=== PATIENT | male | born 1960 | race Caucasian/White ===

== ENCOUNTER 2018-02-28 18:21 | Emergency (ER) | payer BC ==
[2018-02-28] MEDS ORDERED: NS 0.9% 1000 ML* 1,000 ML IV ONE (19:22)
[2018-02-28 19:37] LABS: ABS Basophils 0.1 10^3/ul (0-0.2); ABS Eosinophils 0.1 10^3/ul (0-0.6); ABS Lymphocytes 2.1 10^3/ul (1.0-4.8); ABS Monocytes 0.7 10^3/ul (0-0.8); ABS Neutrophils 7.9 10^3/ul (1.5-7.7); ABS Nucleated RBC 0 10^3/ul; Eosinophil % 1.1 % (0-6); Hematocrit 44 % (42-52); Hemoglobin 15.1 g/dl (14.0-18.0); Lymphocyte % 19.4 % (25-47); Mean Corpuscular HGB Conc 35 g/dl (31-36); Mean Corpuscular Hemoglobin 32 pg (27-31); Mean Corpuscular Volume 92 fL (80-94); Mean Platelet Volume 8.7 um3 (7.4-10.4); Nucleated Red Blood Cells % 0.1; Platelet Count 173 10^3/ul (150-450); Red Blood Count 4.73 10^6/ul (4.00-5.40); Red Cell Distribution Width 13 % (10.5-15)
[2018-02-28 19:52] LABS: EGFR Non-African American 74.4 (>60)
[2018-02-28 19:57] LABS: INR 1.01 (0.77-1.02)
[2018-02-28 20:32] LABS: Urine Appearance Clear; Urine Blood Negative (Negative); Urine Color Straw; Urine Ketones Negative (Negative); Urine Protein Negative (Negative); Urine Specific Gravity 1.006 (1.010-1.030); Urine Urobilinogen Negative (Negative)
[2018-02-28] MEDS ORDERED: Iohexol 300* (CONTRAST) 10 ML SDV IV ONE (20:55)
--- NOTE | 2018-02-28 21:52 | RAD ---
CLINICAL HISTORY: Left lower quadrant pain COMPARISON: Similar CT August 31, 2011 TECHNIQUE: Contrast enhanced CT examination of the abdomen and pelvis from the lung bases through the initial tuberosities. The patient received 150 mL Omnipaque 300 intravenously prior to imaging.The patient received oral contrast as well prior to imaging. FINDINGS: VISUALIZED LUNG BASES: The visualized lung bases are grossly clear. There is no pleural effusion. ABDOMEN AND PELVIS: The liver, spleen, pancreas and adrenal glands are grossly normal in appearance. The gallbladder is normal. The kidneys are normal in appearance without focal mass, calcification or signs of hydronephrosis. There are contrast has progressed as far as the rectum. The small and large bowel are not distended. The patient's normal appendix is identified in the right lower quadrant. There is mild thickening of the distal descending colon extending into the sigmoid colon. There is pericolonic infiltration. There is no drainable fluid collection. There are scattered diverticula in the vicinity. There is no gross retroperitoneal or mesenteric lymphadenopathy. The pelvic viscera is normal in appearance. The abdominal aorta and iliac arteries are normal in course and diameter. Degenerative changes include multilevel loss of intervertebral disc height involving the lower thoracic and lumbar spine.There are no sinister bone lesions. IMPRESSION: CT findings are most consistent with diverticulitis involving the distal descending colon and proximal most sigmoid colon.
[2018-02-28] MEDS ORDERED: metroNIDAZOLE TAB* 250 MG PO ONE ×2 (22:03→22:04)
[2018-02-28] MEDS ORDERED: Ciprofloxacin TAB* 500 MG PO ONE ×2 (22:03→22:04)
--- NOTE | 2018-02-28 22:08 | ED ---
Pat Ng Edward, scribed for Ancelmo Fox MD on 02/28/18 at 1923 . Abdominal Pain/Male - HPI Summary HPI Summary: 57 y/o male presents to the ED c/o ABD pain at the L lower ABD starting at around 01:00 this morning. Pain is severe when ABD is pushed on, mild at rest. PMHx 1x diverticulitis (years ago). Pt believes his sx today resemble that of his previous diverticulitis. Denies ABD sx. PMHx IBS - intermittent diarrhea chronically. Denies nausea. [facility]; sent to ED. - History of Current Complaint Chief Complaint: EDAbdPain Stated Complaint: ABD PAIN/[facility] Time Seen by Provider: 02/28/18 19:17 Hx Obtained From: Patient Onset/Duration: Lasting Hours, Still Present Severity Currently: Severe Pain Intensity: 7 Pain Scale Used: 0-10 Numeric Location: Discrete At: RLQ, Suprapubic Aggravating Factor(s): Nothing Alleviating Factor(s): Nothing Associated Signs And Symptoms: Positive: Diarrhea - IBSD. Negative: Urinary Symptoms - Allergies/Home Medications Allergies/Adverse Reactions: Allergies Allergy/AdvReac Type Severity Reaction Status Date / Time No Known Allergies Allergy Verified 02/28/18 18:35 Home Medications: Home Medications Diphenoxylat/Atrop 2.5-0.025M* [Lomotil TAB*] 2 tab PO TID MDD 6 tabs 02/28/18 [ History Confirmed 02/28/18] PMH/Surg Hx/FS Hx/Imm Hx Previously Healthy: No Endocrine/Hematology History: Denies: Hx Anticoagulant Therapy, Hx Diabetes, Hx Thyroid Disease Cardiovascular History: Denies: Hx Hypertension, Hx Pacemaker/ICD Respiratory History: Denies: Hx Asthma, Hx Chronic Obstructive Pulmonary Disease (COPD) History: Denies: Hx Renal Disease Neurological History: Denies: Hx Dementia, Hx Seizures Psychiatric History: Denies: Hx Substance Abuse Infectious Disease History: No Infectious Disease History: Denies: Hx Hepatitis, Hx Human Immunodeficiency Virus (HIV), Traveled Outside the [place] in Last 30 Days - Family History Known Family History: Positive: Unknown - Social History Alcohol Use: Occasionally Substance Use Type: Reports: None Smoking Status (MU): Never Smoked Tobacco Review of Systems Constitutional: Negative Eyes: Negative ENT: Negative Cardiovascular: Negative Respiratory: Negative Positive: Abdominal Pain, Diarrhea - IBS Genitourinary: Negative Musculoskeletal: Negative Skin: Negative Neurological: Negative Psychological: Normal All Other Systems Reviewed And Are Negative: Yes Physical Exam Triage Information Reviewed: Yes Vital Signs On Initial Exam: Initial Vitals Temp Pulse Resp BP Pulse Ox 98.4 F 70 18 157/88 99 02/28/18 18:33 02/28/18 18:33 02/28/18 18:33 02/28/18 18:33 02/28/18 18:33 Vital Signs Reviewed: Yes Appearance: Positive: Well-Appearing, No Pain Distress Skin: Positive: Warm, Skin Color Reflects Adequate Perfusion, Dry Head/Face: Positive: Normal Head/Face Inspection Eyes: Positive: EOMI, ANNE ENT: Positive: Normal ENT inspection Neck: Positive: Supple, Nontender Respiratory/Lung Sounds: Positive: Clear to Auscultation, Breath Sounds Present Cardiovascular: Positive: RRR Abdomen Description: Positive: Soft, Other: - Tender LLQ Bowel Sounds: Positive: Hypoactive Musculoskeletal: Positive: Normal, Strength/ROM Intact Neurological: Positive: Sensory/Motor Intact, Alert, Oriented to Person Place, Time Psychiatric: Positive: Affect/Mood Appropriate Diagnostics - Vital Signs Vital Signs Temp Pulse Resp BP Pulse Ox 02/28/18 18:33 98.4 F 70 18 157/88 99 - Laboratory Lab Results: Lab Results 02/28/18 02/28/18 02/28/18 Range/Units 19:29 19:29 19:46 WBC 11.0 H (3.5-10.8) 10^3/ul RBC 4.73 (4.00-5.40) 10^6/ul Hgb 15.1 (14.0-18.0) g/dl Hct 44 (42-52) % MCV 92 (80-94) fL MCH 32 H (27-31) pg MCHC 35 (31-36) g/dl RDW 13 (10.5-15) % Plt Count 173 (150-450) 10^3/ul MPV 8.7 (7.4-10.4) um3 Neut % (Auto) 71.8 (38-83) % Lymph % (Auto) 19.4 L (25-47) % Dillon % (Auto) 6.8 (0-7) % Eos % (Auto) 1.1 (0-6) % Baso % (Auto) 0.9 (0-2) % Absolute Neuts (auto) 7.9 H (1.5-7.7) 10^3/ul Absolute Lymphs (auto) 2.1 (1.0-4.8) 10^3/ul Absolute Monos (auto) 0.7 (0-0.8) 10^3/ul Absolute Eos (auto) 0.1 (0-0.6) 10^3/ul Absolute Basos (auto) 0.1 (0-0.2) 10^3/ul Absolute Nucleated RBC 0 10^3/ul Nucleated RBC % 0.1 INR (Anticoag Therapy) 1.01 (0.77-1.02) Sodium 138 (135-145) mmol/L Potassium 4.4 (3.5-5.0) mmol/L Chloride 100 L (101-111) mmol/L Carbon Dioxide 31 (22-32) mmol/L Anion Gap 7 (2-11) mmol/L BUN 11 (6-24) mg/dL Creatinine 1.03 (0.67-1.17) mg/dL Est GFR ( Amer) 90.1 (>60) Est GFR (Non-Af Amer) 74.4 (>60) BUN/Creatinine Ratio 10.7 (8-20) Glucose 99 (70-100) mg/dL Calcium 9.4 (8.6-10.3) mg/dL Total Bilirubin 0.80 (0.2-1.0) mg/dL AST 60 H (13-39) U/L ALT 46 (7-52) U/L Alkaline Phosphatase 60 (34-104) U/L C-Reactive Protein 44.74 H (<8.01) mg/L Total Protein 7.5 (6.4-8.9) g/dL Albumin 4.2 (3.2-5.2) g/dL Globulin 3.3 (2-4) g/dL Albumin/Globulin Ratio 1.3 (1-3) Lipase 32 (11.0-82.0) U/L Urine Color Urine Appearance Urine pH (5-9) Ur Specific Newborn (1.010-1.030) Urine Protein (Negative) Urine Ketones (Negative) Urine Blood (Negative) Urine Nitrate (Negative) Urine Bilirubin (Negative) Urine Urobilinogen (Negative) Ur Leukocyte Esterase (Negative) Urine Glucose (Negative) 02/28/18 Range/Units 20:22 WBC (3.5-10.8) 10^3/ul RBC (4.00-5.40) 10^6/ul Hgb (14.0-18.0) g/dl Hct (42-52) % MCV (80-94) fL MCH (27-31) pg MCHC (31-36) g/dl RDW (10.5-15) % Plt Count (150-450) 10^3/ul MPV (7.4-10.4) um3 Neut % (Auto) (38-83) % Lymph % (Auto) (25-47) % Dillon % (Auto) (0-7) % Eos % (Auto) (0-6) % Baso % (Auto) (0-2) % Absolute Neuts (auto) (1.5-7.7) 10^3/ul Absolute Lymphs (auto) (1.0-4.8) 10^3/ul Absolute Monos (auto) (0-0.8) 10^3/ul Absolute Eos (auto) (0-0.6) 10^3/ul Absolute Basos (auto) (0-0.2) 10^3/ul Absolute Nucleated RBC 10^3/ul Nucleated RBC % INR (Anticoag Therapy) (0.77-1.02) Sodium (135-145) mmol/L Potassium (3.5-5.0) mmol/L Chloride (101-111) mmol/L Carbon Dioxide (22-32) mmol/L Anion Gap (2-11) mmol/L BUN (6-24) mg/dL Creatinine (0.67-1.17) mg/dL Est GFR ( Amer) (>60) Est GFR (Non-Af Amer) (>60) BUN/Creatinine Ratio (8-20) Glucose (70-100) mg/dL Calcium (8.6-10.3) mg/dL Total Bilirubin (0.2-1.0) mg/dL AST (13-39) U/L ALT (7-52) U/L Alkaline Phosphatase (34-104) U/L C-Reactive Protein (<8.01) mg/L Total Protein (6.4-8.9) g/dL Albumin (3.2-5.2) g/dL Globulin (2-4) g/dL Albumin/Globulin Ratio (1-3) Lipase (11.0-82.0) U/L Urine Color Straw Urine Appearance Clear Urine pH 7.0 (5-9) Ur Specific Newborn 1.006 L (1.010-1.030) Urine Protein Negative (Negative) Urine Ketones Negative (Negative) Urine Blood Negative (Negative) Urine Nitrate Negative (Negative) Urine Bilirubin Negative (Negative) Urine Urobilinogen Negative (Negative) Ur Leukocyte Esterase Negative (Negative) Urine Glucose Negative (Negative) Result Diagrams: 02/28/18 19:29 02/28/18 19:29 Lab Statement: Any lab studies that have been ordered have been reviewed, and results considered in the medical decision making process. - CT ABD/PEL CT CT Interpretation: Positive (See Comments) - CT findings are most consistent with diverticulitis involving the distal descending colon and proximal most sigmoid colon. CT Interpretation Completed By: Radiologist Abdominal Pain Fem Course/Dx - Course Course Of Treatment: DISCUSSED RESULTS WITH THE PATIENT AND FAMILY. F/U PMD; RETURN TO THE ED IF WORSE. - Diagnoses Provider Diagnoses: Diverticulitis Discharge - Sign-Out/Discharge Documenting (check all that apply): Discharge/Admit/Transfer - Discharge Plan Condition: Stable Disposition: HOME Prescriptions: Ciprofloxacin TAB* [Cipro 500 MG TAB*] 500 mg PO BID #18 tab metroNIDAZOLE [Flagyl 500 MG TAB] 500 mg PO TID #28 tab Patient Education Materials: Diverticulitis (ED), Diverticulitis Diet (ED) Referrals: Fito Valdes MD [Primary Care Provider] - Additional Instructions: FOLLOW UP WITH YOUR DOCTOR. RETURN TO THE EMERGENCY DEPARTMENT FOR ANY WORSENING OF YOUR CONDITION; PAIN, FEVER, DEHYDRATION, YOU FEEL ILL OR QUESTIONS OR CONCERNS. - Billing Disposition and Condition Condition: STABLE Disposition: Home The documentation as recorded by the Pat lagunas Edward accurately reflects the service I personally performed and the decisions made by me, Ancelmo Fox MD.
[2018-02-28 22:37] VITALS: BP 149/89
== END 2018-02-28 22:37 | disposition home or self-care (01) ==
LOC: ED 18:21
DX: K57.32 Diverticulitis of large intestine without perforation or abscess without bleeding (principal); K58.0 Irritable bowel syndrome with diarrhea
CPT/HCPCS: 36415; 74177; 80053; 81003; 83690; 85025; 85610; 86140; 96360; 96361; 99283; A9270-GY; Q9967

== ENCOUNTER 2018-10-07 12:57 | Emergency (ER) | payer BC ==
[2018-10-07 13:21] VITALS: BP 138/91
--- NOTE | 2018-10-07 14:16 | UC ---
Shortness of Breath HPI - HPI Summary HPI Summary: 58 y/o male with no pmh of lung disease, no smoking, c/o wheezing, weakness, cough- dx'd 2/ with PNA at [facility], started on 3 days prednisone and doxycycline x 7 days. improvement with prednisone, but now symptoms returning. no fever, chills. currently working. - History of Current Complaint Chief Complaint: UCGeneralIllness Stated Complaint: WHEEZING Time Seen by Provider: 10/07/18 13:37 Hx Obtained From: Patient Onset/Duration: Sudden Onset Current Severity: None Associated Signs & Symptoms: Positive: Cough (Nonproductive), Wheezing, Chest Pain w/Cough - Allergy/Home Medications Allergies/Adverse Reactions: Allergies Allergy/AdvReac Type Severity Reaction Status Date / Time No Known Allergies Allergy Verified 10/07/18 13:13 Home Medications: Home Medications Diphenoxylat/Atrop 2.5-0.025M* [Lomotil TAB*] 2 tab PO TID 10/07/18 [History Confirmed 10/07/18] PMH/Surg Hx/FS Hx/Imm Hx Previously Healthy: Yes - no lung disease Other History Of: Negative For: Anticoagulant Therapy - Surgical History Surgical History: Yes Surgery Procedure, Year, and Place: inguinal hernia repair. R/L knee arthroscopy - Family History Known Family History: Positive: Unknown - Social History Alcohol Use: None Substance Use Type: None Smoking Status (MU): Never Smoked Tobacco Review of Systems All Other Systems Reviewed And Are Negative: Yes Constitutional: Positive: Fatigue Respiratory: Positive: Shortness Of Breath, Cough, Other - wheezing Is Patient Immunocompromised?: No Physical Exam Triage Information Reviewed: Yes Appearance: No Pain Distress, Well-Nourished, Ill-Appearing - mild Vital Signs: Initial Vital Signs Temp 96.6 F 10/07/18 13:15 Pulse 57 10/07/18 13:15 Resp 16 10/07/18 13:15 BP 138/91 10/07/18 13:15 Pulse Ox 97 10/07/18 13:15 Eyes: Positive: Conjunctiva Clear ENT: Positive: Pharynx normal, TMs normal - unable to full yvisualize due to cerumen impaction, Uvula midline. Negative: TM bulging, TM dull, TM red, Tonsillar swelling, Tonsillar exudate, Sinus tenderness Neck: Positive: Supple, Nontender, No Lymphadenopathy. Negative: Nuchal Rigidity Respiratory: Positive: Chest non-tender, No respiratory distress, Rhonchi - L LL , Wheezing - L LL. Negative: Respiratory distress, Decreased breath sounds, Accessory muscle use Cardiovascular: Positive: RRR, No Murmur Psychological Exam: Normal Skin Exam: Normal Shortness of Breath Dx - Course Course Of Treatment: CXR- neg for disease, extend doxycyline and PO steroid course - Differential Dx/Diagnosis Differential Diagnosis/HQI/PQRI: Bronchitis, Pneumonia, Pneumothorax Provider Diagnosis: Bronchitis Discharge - Sign-Out/Discharge Documenting (check all that apply): Patient Departure All imaging exams completed and their final reports reviewed: Yes - Discharge Plan Condition: Good Disposition: HOME Prescriptions: Doxycycline Hyclate [Morgidox] 100 mg PO BID #14 capsule methylPREDNISolone [Medrol Dosepak 4 MG*] 1 franklyn PO .SEE FRANKLYN INSTRUCTION #1 packet Patient Education Materials: Bronchospasm (ED), Acute Bronchitis (ED) Referrals: Fito Valdes MD [Primary Care Provider] - Additional Instructions: - Increase fluid intake - Follow up with primary physician within 5-7 days for re-evaluation - Antibiotics as directed - doxycyline twice daily x 7 days - Tylenol/ Motrin as needed for pain - Over the counter medication as needed for symptoms - Go to ER with shortness of breath, chest pain, increased pain, fever > 102. - Medrol dose taper - steroids to decrease inflammatoin - Billing Disposition and Condition Condition: GOOD Disposition: Home
== END 2018-10-07 14:39 | disposition home or self-care (01) ==
LOC: UCEAST 12:57
DX: J40 Bronchitis, not specified as acute or chronic (principal)
CPT/HCPCS: 71046; 99213; G0463

== ENCOUNTER → 2019-02-13 05:47 | Day surgery (SDC) | payer BC, OTHER ==
--- NOTE | 2019-02-04 15:02 | HP ---
HISTORY AND PHYSICAL: DATE OF ADMISSION/SURGERY: 02/13/19 DATE OF OFFICE VISIT: 02/03/19 SURGEON: Amisha Stevens MD * (DICTATED BY FAISAL DOUGLASS) PROCEDURE: Left knee arthroscopy with partial meniscectomy, possible chondroplasty, possible synovectomy, and possible plica excision. CHIEF COMPLAINT: Left knee pain. HISTORY OF PRESENT ILLNESS: Mr. Cruz is a 58-year-old gentleman with complaints of left knee pain. He has elected to proceed with a left knee arthroscopy. PAST MEDICAL HISTORY: IBS and diverticulitis. PAST SURGICAL HISTORY: Bilateral knee arthroscopies and hernia repair. CURRENT MEDICATIONS: Lomotil 2.5/0.025 two tabs 3 times a day. ALLERGIES: No known drug allergies. FAMILY HISTORY: Cancer. SOCIAL HISTORY: He is a 58-year-old gentleman, lives alone. He does not smoke or use drugs. Uses occasional alcohol. REVIEW OF SYSTEMS: A complete 14-point review of systems was reviewed with the patient. It was all negative or noncontributory. He denies history of DVT, PE , hepatitis, HIV, or anesthesia problems. PHYSICAL EXAMINATION GENERAL: He is well developed, well nourished, in no acute distress. VITAL SIGNS: He stands 70 inches tall, weighs 265 pounds. His blood pressure is 138/85, his heart rate is 84. HEENT: Normocephalic, atraumatic. NECK: Supple. No palpable lymph nodes. PULMONARY: The lungs are clear to auscultation bilaterally. CARDIO: Regular rate and rhythm. Strong S1, S2. ABDOMEN: Soft, nontender, nondistended. NEUROLOGICAL: He is alert and oriented x3. MUSCULOSKELETAL: Left lower extremity: The skin is intact. There are no open wounds or abrasions. There is a moderate effusion of the left knee, some tenderness along the medial and lateral joint line. Positive Apley's, positive Fabricio's. Range of motion is 5 to 120 degrees of flexion. He has a 2+ dorsalis pedis pulse. He is able to dorsiflex and plantarflex and has intact sensation. ASSESSMENT AND PLAN: Mr. Cruz is a 58-year-old gentleman with complaints of left knee pain and MRI shows displaced medial and lateral meniscus tears. He has elected to proceed with a left knee arthroscopy with partial meniscectomy, possible chondroplasty, possible synovectomy, and possible plica excision. The surgery is scheduled for 02/13/[address] Stevens discussed the risks and benefits of the surgery at today's visit and all of his questions were answered. He will follow up with Dr. Stevens 2 weeks after the surgery. FAISAL DOUGLASS [id number]/[facility] #: [id number] [facility] HOSPITALCathleen
[~2019-02-13 05:47] MED LIST: Buffered Lidocaine 1% SYRIN* 1 ML/SYRINGE INTRADERM ONE; Chloroprocaine 2%* 20 ML VIAL ONE; Dexamethasone IV* 4 MG/ML 1 ML (4 MG) IV SLOW PU ONE; Dexamethasone IV* 4 MG/ML 1 ML (4 MG) ONE; DiMENhydriNATE IV* 50 MG/ML VIAL IV PUSH PRN; EPHEDrine (Pressors)* 50 MG/ML VIAL ONE; EPINEPHRINE 1 MG/ML 1 ML VIAL ONE; Famotidine IV* 10 MG/ML 2 ML (20 mg) IV ONE; Famotidine IV* 10 MG/ML 2 ML (20 mg) ONE; Glycopyrrolate IV* 0.2 MG/ML 1 ML VIAL ONE; Ketorolac INJ* 30 MG/ML 1 ML VIAL ONE; Lactated Ringers 1000 ML Bag* 1,000 ML IV SCH; Midazolam* 1 MG/ML 5 ML VIAL (5 MG) ONE; Naloxone* 0.4 MG/ML 1 ML VIAL IV PRN; Ondansetron INJ* 2 MG/ML VIAL IV PRN; Ondansetron INJ* 2 MG/ML VIAL ONE; Propofol* 10 MG/ML 20 ML BTL ONE; ROPIVACAINE 5 MG/ML 30 ML BTL (0.5%) ONE; ceFAZolin 1 GM ADVAN(*) 1 GM ADDV.VIAL IVPB ONE; ceFAZolin 2 GM in NS PREMIX(*) 2 GM/100 ML BAG IVPB ONE; fentaNYL* 50 MCG/ML 2 ML VIAL (100 MCG VIAL) IV PRN; fentaNYL* 50 MCG/ML 2 ML VIAL (100 MCG VIAL) ONE; methylPREDNISolone ACETATE 80* 80 MG/ML 1 ML VIAL ONE; oxyCODONE/Acetamin 5/325 MG* TAB PO PRN
[2019-02-13 11:34] VITALS: BP 148/83
--- NOTE | 2019-02-13 22:35 | OP ---
DATE OF OPERATION: 02/13/19 [facility] DATE OF : 60 ATTENDING SURGEON: Amisha Stevens MD VAT OPERATOR: FAISAL Bains ANESTHESIOLOGIST: Dr. Tamayo. ANESTHESIA: General. PRE-OP DIAGNOSES: Left knee medial and lateral meniscal tears, mild to moderate osteoarthritis. POST-OP DIAGNOSES: Left knee medial and lateral meniscal tears, moderate to severe osteoarthritis. OPERATIVE PROCEDURE: Left knee arthroscopy with partial medial meniscectomy and partial lateral meniscectomy. SPECIMEN: None. COMPLICATIONS: None. ESTIMATED BLOOD LOSS: Less than 25 cc. BRIEF HISTORY/INDICATIONS: Mr. Cruz is a 58-year-old gentleman who injured himself at work at [employer]. He tripped on a rug and twisted the left knee. Since that time, he had mechanical symptoms and pain. MRI confirmed meniscal tears. The patient failed conservative treatment and elected to undergo knee arthroscopy. Informed consent was obtained from the patient. He understood the risks of surgery included, but were not limited to bleeding, infection, damage to nearby structures, continued pain, need for further surgery, retear of meniscus, progression of arthritis, stroke, heart attack, blood clot and . He wished to proceed. INTRAOPERATIVE FINDINGS: Intraoperatively, the patient was found to have a grade 3 and 4 Outerbridge cartilage changes in the medial and patellofemoral compartments. Medial meniscus had a longitudinal tear in the anterior 30% as well as a radial type tear in the posterior horn of the meniscus. These were both in the red-white zone. Lateral meniscus had a linear tear along the anterior portions of meniscus. This was in the white-red zone. DESCRIPTION OF PROCEDURE: Mr. Cruz was identified in the preanesthesia unit. His left lower extremity was marked as the correct operative side. Informed consent was signed and placed in the chart. The patient was taken to the operating room and placed under anesthesia without difficulty. His left lower extremity was prepped and draped in the usual sterile fashion. Preop time-out was made to correctly identify the patient's side and site. Appropriate perioperative antibiotics were given within 1 hour of incision. Standard anterolateral portal incision was made with a 10 blade, carried down to the capsule. Trocar was introduced. As soon as the light and water sources were turned on, there was immediate visualization of the suprapatellar pouch. A tour of the knee joint was performed. Suprapatellar pouch had no obvious abnormalities. Patellofemoral compartment was visualized and did show some grade 3 and 4 Outerbridge cartilage changes in the trochlear groove of femur as well as the medial patellar facet. Medial gutter showed no loose body or plica. Medial compartment showed grade 3 and 4 Outerbridge cartilage changes along the medial femoral condyle. There was a visible anterior medial meniscal tear and a visible posterior medial meniscus tear. ACL and PCL appeared to be intact. The knee was placed in a [id number] position. Anterolateral meniscus tear was visualized. Minimal degenerative changes were noted. Lateral gutters showed no obvious loose body or plica. Under direct visualization, a medial portal incision was made. A probe was introduced and a second tour of the knee joint was performed. No additional findings were noted. Straight biter and shaver were used to perform partial medial meniscectomies both anteriorly and posteriorly. Anterior tear was longitudinal and posterior tear was radial. Both of these were in the red- white zone. Radiofrequency ablation wand was used to further smooth the edge of the meniscus. Further probing of the medial meniscus showed no additional tears. The knee was placed in a [id number] position. Straight biter and shaver were used to perform partial lateral meniscectomy. This was in the anterior lateral meniscus in the white-red zone. Longitudinal tear was excised. Radiofrequency ablation wand was used to further smooth the edge of the meniscus. Further probing of the meniscus showed no additional tears. The knee was copiously irrigated with sterile saline. All instruments were removed. Incisions were closed using 3-0 nylon suture. Intraarticular injection 80 mg Depo-Medrol and 6 cc of 0.25% Marcaine was placed in the knee joint. The patient's incisions were covered with Xeroform, 4x4s, and Webril. HADLEY wrap and cold packs were placed over this. The patient's anesthesia was reversed without difficulty. He was taken to the PACU in stable condition. Intended weightbearing will be weightbearing as tolerated. Intended DVT prophylaxis will be aspirin. [id number]/[facility] #: [id number] [place]
== END | disposition home or self-care (01) ==
LOC: OR 05:47
PROVIDERS: ATTEND Orthopaedic Surgery Adult Reconstructive Orthopaedic Surgery
DX: S83.241A Other tear of medial meniscus, current injury, right knee, initial encounter (principal); S83.281A Other tear of lateral meniscus, current injury, right knee, initial encounter; M17.11 Unilateral primary osteoarthritis, right knee; K58.9 Irritable bowel syndrome, unspecified; K57.92 Diverticulitis of intestine, part unspecified, without perforation or abscess without bleeding; X58.XXXA Exposure to other specified factors, initial encounter
CPT/HCPCS: J0690; J1040; J1100; J1885; J2250; J2400; J2405; J2704; J2795; J3010